=== PATIENT | male | born 1995 | race Caucasian/White ===

== ENCOUNTER 2022-03-26 21:46 | Emergency (ER) | payer OTHER ==
[~2022-03-26 21:46] MED LIST: ZYRTEC10 M3 PO
[2022-03-26 22:40] LABS: BASOPHIL 0.4 % (0-2); EOSINOPHIL 0.9 % (0-5); HCT 46.4 % (42.0-52.0); HGB 16.4 g/dl (13.2-18.0); LYMPHOCYTE 24.4 % (15-48); MCH 30.8 pg (25.0-31.0); MCHC 35.3 g/dL (32.0-36.0); MCV 87.1 fL (78.0-100.0); MPV 9.8 fL (6.0-9.5); NEUTROPHIL 68.1 % (41-80); NRBC 0; PLT 328 K/uL (150-400); RBC 5.33 M/uL (4.70-6.00); RDW 12.1 % (11.5-14.0); WBC 13.7 K/uL (4.0-10.5)
[2022-03-26 22:53] LABS: CORONAVIRUS 2019 SARS-COV-2 NEGATIVE (NEGATIVE); INFLUENZA A NAA NEGATIVE (NEGATIVE)
[2022-03-26 23:04] LABS: BILIRUBIN NEGATIVE (NEGATIVE); BLOOD NEGATIVE Ery/uL (NEGATIVE); CLARITY CLEAR (CLEAR); COLOR YELLOW (YELLOW); GLUCOSE (U) NORMAL (NORMAL); LEUKOCYTES NEGATIVE Leu/uL (NEGATIVE); NITRITE NEGATIVE (NEGATIVE); PROTEIN NEGATIVE (NEGATIVE); SPECIFIC GRAVITY 1.015 (1.001-1.030); pH 7.5 (5.0-9.0)
[2022-03-26 23:14] LABS: ALBUMIN 4.3 g/dL (3.4-5.0); BILIRUBIN - TOTAL 0.5 mg/dL (0.2-1.0); BUN/CREAT RATIO (CALC) 17.9 RATIO; CREATININE 0.95 mg/dL (0.67-1.17); GLOBULIN (CALCULATION) 4.3 g/dL; POTASSIUM 3.9 mmol/L (3.5-5.1); TOTAL PROTEIN 8.6 g/dL (6.4-8.2)
[2022-03-26] MEDS ORDERED: PHENERGAN25 M1 PO (23:23)
[2022-03-26] MEDS ORDERED: MUCINEX DM ER1 EACH PO (23:23)
[2022-03-26] MEDS ORDERED: ONDANSETRON ODT4 MG PO (23:23)
== END 2022-03-26 23:45 | disposition home or self-care (01) ==
LOC: FER 21:46
PROVIDERS: Nurse Practitioner Family
DX: B34.9 Viral infection, unspecified (principal); F17.210 Nicotine dependence, cigarettes, uncomplicated; Z20.822 Contact with and (suspected) exposure to COVID-19; Z28.310 Unvaccinated for COVID-19; Z88.8 Allergy status to other drugs, medicaments and biological substances
CPT/HCPCS: 36415; 71046; 80053; 81003; 85025; J1100; J7030; U0002